=== PATIENT | female | born 1970 | race Caucasian/White ===

== ENCOUNTER 2019-04-11 18:38 | Emergency (ER) | payer OTHER ==
[~2019-04-11] VITALS: Ht 157.5 cm; Wt 75.3 kg
[2019-04-11] MEDS ORDERED: CYMBALTA20 MG PO (18:44)
[2019-04-11] MEDS ORDERED: ATIVAN1 M1 PO (18:45)
[2019-04-11 19:01] LABS: ABSOLUTE BASOPHILS 0.1 thou/uL (0.0-0.2); ABSOLUTE EOSINOPHILS 0.1 thou/uL (0.0-0.7); ABSOLUTE LYMPHOCYTES 2.2 thou/uL (0.8-5.3); ABSOLUTE MONOCYTES 0.6 thou/uL (0.0-1.2); ABSOLUTE NEUTROPHILS 6.4 thou/uL (1.6-8.1); BASOPHILS 1.3 %; EOSINOPHILS 1.4 %; HEMATOCRIT 38.7 % (37.0-47.0); LYMPHOCYTES 23.4 %; MCH 29.5 pg (26.0-34.0); MCHC 33.7 g/dL (28.0-37.0); MCV 87.5 fL (80.0-100.0); MONOCYTES 6.1 %; MPV 9.4 fl. (7.2-11.1); NUCLEATED RBCS 0 /100WBC; PLATELET COUNT* 200 thou/uL (150-400); POLYS 67.8 %; RBC 4.42 mil/uL (4.20-5.00); RDW-CV 13.9 % (10.5-14.5); WBC 9.5 thou/uL (4.0-11.0)
[2019-04-11 19:06] LABS: CALCIUM 8.4 mg/dL (8.5-10.1); CREATININE 0.8 mg/dL (0.6-1.3); POTASSIUM 3.3 mmol/L (3.5-5.1)
[2019-04-11 19:10] LABS: APTT 25.9 Seconds (25.0-31.3); PROTIME 10.2 Seconds (9.20-11.50)
[2019-04-11 19:17] LABS: ALBUMIN 3.3 g/dL (3.4-5.0); TOTAL BILIRUBIN 0.1 mg/dL (<0.1-1.0); TOTAL PROTEIN 7.2 g/dL (6.4-8.2)
[2019-04-11 20:46] VITALS: BP 163/86
--- NOTE | 2019-04-12 11:17 | EKG ---
[place] [address] ELECTROCARDIOGRAM REPORT Name: GERA GILBERT Room: [facility]#: [id number] Admission: 04/11/19 Attend Phys: Discharge: 04/11/19 Date of : 68 Date of Service: 04/11/19 1841 Report #: [id number] THIS REPORT FOR: //name// [facility] ED Test Date: 2019-04-11 Test Time: 18:41:51 Pat Name: GERA GILBERT Department: Room: Gender: F [employer] Operator: PAWAN : 1970 Requested By: Christine Marin Order Number: [id number] MD: Lamonte Diaz Measurements Intervals [place] Rate: 73 P: 35 NC: 169 QRS: -25 QRSD: 95 T: 14 QT: 399 QTc: 440 Interpretive Statements Sinus rhythm Borderline left axis deviation No previous ECG available for comparison Electronically Signed On 04-12-2019 11:17:01 CLIENT DEVELOPMENT CONSULTANT by Lamonte Diaz [email or web address] <ELECTRONICALLY SIGNED> By: Lamonte Diaz MD, [facility] 04/12/19 1117 184 40 Lamonte Diaz MD, FACC /EPI
== END 2019-04-11 21:10 | disposition home or self-care (01) ==
LOC: M.ERS 18:38
PROVIDERS: Physician Assistant
DX: R07.89 Other chest pain (principal); Z90.710 Acquired absence of both cervix and uterus; Z98.890 Other specified postprocedural states; Z90.89 Acquired absence of other organs; Z88.5 Allergy status to narcotic agent